=== PATIENT | male | born 1965 | race American Indian/Alaskan Native ===

== ENCOUNTER 2017-07-24 07:21 | Day surgery (SDC) | payer OTHER ==
[~2017-07-24 07:21] MED LIST: Lactated Ringers 1,000 ML IV SCH; Lidocaine 1% 4 ML ONE; Lidocaine 1%/Sod Bicarbonate in NS 8.4% 1 ML Syringe IV PRN; Propofol 200 MG/20 ML SDV ONE; Sodium Chloride 0.9% 10 ML Syringe FLUSH PRN; fentaNYL 100 MCG/2 ML SDV ONE
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
[2017-07-24] MEDS ORDERED: Ketamine 500 mg/10 ML MDV ONE (09:04)
[2017-07-24] MEDS ORDERED: Propofol 200 MG/20 ML SDV ONE (09:21)
--- NOTE | 2017-07-24 09:31 | PCM.OPNOTE ---
- General Post-Op/Procedure Note Date of Surgery/Procedure: 07/24/17 Operative Procedure(s): colonosocopy to cecum with removal of diminutive polyp by cold bx forceps at 20 cm Pre Op Diagnosis: screening colonosocopy Post-Op Diagnosis: Same Anesthesia Technique: MAC Primary Surgeon: Nikos Costa Complications: None Condition: Good
--- NOTE | 2017-07-24 09:34 | PCM48HPAN ---
Post Anesthesia Note - EVALUATION WITHIN 48HRS OF ANESTHETIC Vital Signs in Normal Range: Yes Patient Participated in Evaluation: Yes Respiratory Function Stable: Yes Airway Patent: Yes Cardiovascular Function Stable: Yes Hydration Status Stable: Yes Pain Control Satisfactory: Yes Nausea and Vomiting Control Satisfactory: Yes Mental Status Recovered: Yes
[2017-07-24 09:37] VITALS: BP 134/88
--- NOTE | 2017-07-24 13:05 | OR ---
DATE OF OPERATION: 07/24/2017 SURGEON: Nikos Costa MD PREOPERATIVE DIAGNOSIS: Screening colonoscopy. POSTOPERATIVE DIAGNOSIS: Screening colonoscopy. OPERATION PERFORMED: Colonoscopy to cecum with removal of a diminutive polyp at 20 cm by cold biopsy forceps, completely removed. FINDINGS: I did not see any angiodysplasias, large tumor masses, ulcerations, diverticulum, or notable hemorrhoids. ANESTHESIA: Done under IV sedation. DESCRIPTION OF PROCEDURE: The patient was taken to the endoscopy room, placed in a supine position, connected to monitoring equipment, given IV sedation, and placed in a left lateral position. Perianal area was inspected and was normal. Rectal exam showed good sphincter tone. A video Olympus colonoscope was then introduced into the rectum and threaded up without problem to the cecum, where the appendicular orifice and ileocecal valve were noted. Prep was adequate. [place] cleansing score grade B. The scope was slowly withdrawn showing the cecum, ascending colon, transverse colon, descending colon, sigmoid colon, and rectum. A small, only 1, diverticulum was noted at the descending colon and a diminutive lesion, possibly a polyp, was noted at 20 cm, and this was removed by cold biopsy forceps. This was sent to pathology. The patient tolerated the procedure and was sent to recovery room in a stable condition. Specimen sent to pathology in a labeled container. The patient will be followed up in the clinic. ESTIMATED BLOOD LOSS: MMODAL /[id number]
== END 2017-07-24 10:02 | disposition home or self-care (01) ==
LOC: JD.SDS 07:21
PROVIDERS: ATTEND Surgery
DX: Z12.11 Encounter for screening for malignant neoplasm of colon (principal); D12.6 Benign neoplasm of colon, unspecified; K57.30 Diverticulosis of large intestine without perforation or abscess without bleeding; I10 Essential (primary) hypertension; E66.9 Obesity, unspecified; Z79.82 Long term (current) use of aspirin; Z79.899 Other long term (current) drug therapy; Z87.891 Personal history of nicotine dependence; Z68.41 Body mass index [BMI] 40.0-44.9, adult
CPT/HCPCS: 45380; J3010; J7120; 00810; J2704

== ENCOUNTER 2017-08-03 07:10 | Day surgery (SDC) | payer OTHER ==
[~2017-08-03 07:10] MED LIST changes: +Ketamine 500 mg/10 ML MDV ONE; +Lactated Ringers 1,000 ML ONE; -Lidocaine 1%/Sod Bicarbonate in NS 8.4% 1 ML Syringe IV PRN; +Lidocaine 1%/Sod Bicarbonate in NS 8.4% 1 ML Syringe PRN; +Metoclopramide 10 MG/2 ML SDV ONE; +Midazolam 1 MG/ML 2 ML SDV ONE; +Ondansetron 4 MG/2 ML SDV ONE; +fentaNYL 250 MCG/5 ML SDV ONE
[2017-08-03] MEDS ORDERED: Ketamine 500 mg/10 ML MDV ONE (07:31)
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
[2017-08-03] MEDS ORDERED: Lidocaine 1% with EPINEPHrine 1:100,000 20 ML MDV ONE ×2 (08:30→09:16)
[2017-08-03] MEDS ORDERED: Bacitracin Oint 15 GM Tube ONE (09:20)
[2017-08-03] MEDS ORDERED: Propofol 200 MG/20 ML SDV ONE ×4 (09:20→10:17)
[2017-08-03] MEDS ORDERED: Ondansetron 4 MG/2 ML SDV ONE (09:36)
[2017-08-03] MEDS ORDERED: fentaNYL 100 MCG/2 ML SDV ONE (09:38)
[2017-08-03] MEDS ORDERED: Lidocaine 1% 2 ML ONE (10:34)
[2017-08-03] MEDS ORDERED: Lactated Ringers 1,000 ML ONE ×2 (10:34)
--- NOTE | 2017-08-03 10:38 | PCM.OPNOTE ---
- General Post-Op/Procedure Note Date of Surgery/Procedure: 08/03/17 Operative Procedure(s): excision multipe skin neuromas with layered closures see op note Pre Op Diagnosis: neuromas multiple Post-Op Diagnosis: Same Anesthesia Technique: MAC Primary Surgeon: Nikos Costa EBL in mLs: 25 Complications: None Condition: Good
[2017-08-03] MEDS ORDERED: Acetaminophen/HYDROcodone 325-5 MG Tab PO ONE (11:15)
[2017-08-03 11:27] VITALS: BP 131/89
--- NOTE | 2017-08-03 14:02 | OR ---
DATE OF OPERATION: 08/03/2017 SURGEON: Nikos Costa MD PREOPERATIVE DIAGNOSIS: Multiple neuromas. POSTOPERATIVE DIAGNOSIS: Multiple neuromas. OPERATION PERFORMED: Excision with layered closure. ANESTHESIA: Done under IV sedation and local anesthetic, 1% Xylocaine with epinephrine. INDICATION: This patient has a history of pain from these neuromas and history of growth. Sites of the excision; 1. Right scalp medial margin of lesion 2 cm, excised and brought together with a layered closure. 2. Right scalp lateral 2 cm margin of lesion, brought together in layered closure. 3. Right arm posterior margin of lesion 4 cm, excised and closed in layers. 4. Right arm anterior 4 cm margin of lesion, excised and brought together in layered closure. 5. Right arm distal margin of lesion, 4 cm, excised and brought together in layered closure. 6. Lesion of right forearm proximal 4 cm margin of lesion, brought together with layered closure. 7. Left lateral chest wall a series of 3 neuromas margin of lesion measuring 4 cm, brought together in a layered closure. 8. Lower abdomen margin of lesion 8 cm, brought together in layered closure. 9. Right lateral thigh margin of lesion 8 cm, brought together in layered closure. DESCRIPTION OF PROCEDURE: The patient was taken to the operating room and placed in a supine position. Prior to anesthetic being given, the areas were marked with a marking pen. Each one of these areas were then prepped with Betadine and draped off in a sterile fashion. Each one of the lesions were elliptically incised. The deep tissues were brought together with interrupted 3-0 Vicryl suture, and the skin with interrupted 4-0 Prolene suture. This was done in the sites stated above. The patient tolerated the procedure and was sent to recovery room in a stable condition. ESTIMATED BLOOD LOSS: 25 mL. MMODAL /[id number]
== END 2017-08-03 11:40 | disposition home or self-care (01) ==
LOC: JD.SDS 07:10
PROVIDERS: ATTEND Surgery
DX: D36.10 Benign neoplasm of peripheral nerves and autonomic nervous system, unspecified (principal); I10 Essential (primary) hypertension; E66.9 Obesity, unspecified; Z68.41 Body mass index [BMI] 40.0-44.9, adult; G89.29 Other chronic pain; M54.5 Low back pain; Z98.890 Other specified postprocedural states; Z79.899 Other long term (current) drug therapy; Z79.82 Long term (current) use of aspirin; Z87.891 Personal history of nicotine dependence
CPT/HCPCS: 64792; A9270; J2250; J2405; J3010; J7120; 00300; J2704; J2765

== ENCOUNTER 2021-02-04 11:07 | Emergency (ER) | payer OTHER ==
[2021-02-04 11:17] VITALS: BP 145/90; PULSE 93
[2021-02-04] MEDS ORDERED: Acetaminophen 325 MG Tab PO ONE (11:25)
--- NOTE | 2021-02-04 11:50 | CT ---
Head CT Technique: Multiple axial sections through the brain were obtained. Intravenous contrast was not utilized. Reconstructed coronal and sagittal images were obtained. Comparison: Prior head CT study of 07/30/12. Findings: Ventricles along with basal cisterns and sulci over the convexities are within normal limits for the patient's age. No abnormal parenchymal densities are seen. No evidence of intracranial hemorrhage. No midline shift or mass-effect is seen. Bone window settings were reviewed. Slight mucosal thickening is noted within the inferior left mastoid sinus. Other visualized mastoid and paranasal sinuses show nothing acute. No acute calvarial abnormality is appreciated. Impression: 1. Mucosal thickening within the anterior left mastoid sinus which appears chronic. 2. No acute intracranial abnormality is appreciated. Diagnostic code #2
[2021-02-04] MEDS ORDERED: Ketorolac 60 MG/2 ML SDV IM ONE (11:51)
[2021-02-04] MEDS ORDERED: HYDROmorphone 1 MG/ML Syringe IM ONE (11:51)
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
== END 2021-02-04 12:15 | disposition home or self-care (01) ==
LOC: JD.ED 11:07
DX: S06.0X0A Concussion without loss of consciousness, initial encounter (principal); E78.00 Pure hypercholesterolemia, unspecified; I10 Essential (primary) hypertension; E66.9 Obesity, unspecified; Z68.30 Body mass index [BMI] 30.0-30.9, adult; Z79.82 Long term (current) use of aspirin; Z79.899 Other long term (current) drug therapy; W22.8XXA Striking against or struck by other objects, initial encounter
CPT/HCPCS: 70450; 96372; 99284; A9270; J1170; J1885; 99283

== ENCOUNTER 2021-09-06 07:12 | Emergency (ER) | payer OTHER ==
[2021-09-06] MEDS ORDERED: Aspirin 81 MG Tab.Chew PO ONE (08:03)
[2021-09-06] MEDS ORDERED: Morphine 4 MG/ML Syringe IVPUSH ONE ×3 (08:04→19:53)
[2021-09-06] MEDS ORDERED: Aspirin 81 MG Tab.Chew ONE (08:17)
[2021-09-06] MEDS: Nitroglycerin 0.3 MG Tab.SL SL PRN ×6 (08:24→12:24)
[2021-09-06] MEDS ORDERED: Heparin Sodium 5,000 Units/ML Vial IVPUSH ONE (12:09)
[2021-09-06] MEDS: Heparin Sodium/D5W 25,000 UNITS/500 ML BAG IV SCH (12:28)
[2021-09-06] MEDS ORDERED: Cyclobenzaprine 10 MG Tab PO PRN (21:01)
[2021-09-06] MEDS ORDERED: Aspirin 81 MG Tab.EC PO SCH (21:15)
[2021-09-06] MEDS ORDERED: atorvaSTATin 40 MG Tab PO SCH ×2 (21:15→21:30)
[2021-09-06] MEDS ORDERED: CELECOXIB 200 MG PO SCH (21:15)
[2021-09-06] MEDS ORDERED: Non-Formulary Medication 1 Each (Metformin Hcl [Metformin Hcl] 1,000 MG Tablet) PO SCH (21:15)
[2021-09-06] MEDS ORDERED: Lisinopril 20 MG Tab PO SCH ×2 (21:15→21:30)
[2021-09-06] MEDS ORDERED: Zolpidem 10 MG Tab PO SCH (21:28)
[2021-09-06] MEDS ORDERED: Celecoxib 100 MG Cap PO SCH ×2 (21:30)
[2021-09-06] MEDS ORDERED: metFORMIN 500 MG Tab PO SCH ×2 (21:30)
[2021-09-07] MEDS: Morphine 4 MG/ML Syringe IVPUSH PRN ×2 (01:46→05:12)
[2021-09-07] MEDS ORDERED: Heparin Sodium 5,000 Units/ML Vial IVPUSH ONE (02:19)
[2021-09-07] MEDS: Heparin Sodium/D5W 25,000 UNITS/500 ML BAG IV SCH (07:20)
[2021-09-07] MEDS ORDERED: Clopidogrel 75 MG Tab PO ONE (08:18)
[2021-09-07] MEDS: Nitroglycerin 0.3 MG Tab.SL SL PRN ×3 (08:36→08:51)
[2021-09-07] MEDS ORDERED: Acetaminophen 325 MG Tab PO PRN (12:34)
[2021-09-07] MEDS ORDERED: Morphine 2 MG/ML SYRINGE IVPUSH PRN (12:34)
[2021-09-07] MEDS ORDERED: oxyCODONE 5 MG Tab PO PRN (12:34)
[2021-09-07] MEDS ORDERED: Ondansetron 4 MG/2 ML SDV IV PRN (12:34)
[2021-09-07 13:47] VITALS: BP 128/74; PULSE 88
[2021-09-07] MEDS ORDERED: Zolpidem 10 MG Tab PO SCH (21:00)
[2021-09-07] MEDS ORDERED: Aspirin 81 MG Tab.EC PO SCH (21:00)
== END 2021-09-07 13:39 ==
LOC: JD.ED 07:12 → JD.MS 09-07 12:34 → UNDOADMOB 09-07 12:34 → JD.ED 09-07 13:39
DX: I24.9 Acute ischemic heart disease, unspecified (principal); E78.00 Pure hypercholesterolemia, unspecified; I10 Essential (primary) hypertension; E11.9 Type 2 diabetes mellitus without complications; I25.10 Atherosclerotic heart disease of native coronary artery without angina pectoris; M19.90 Unspecified osteoarthritis, unspecified site; E66.9 Obesity, unspecified; Z68.35 Body mass index [BMI] 35.0-35.9, adult; Z79.82 Long term (current) use of aspirin; Z79.84 Long term (current) use of oral hypoglycemic drugs; Z79.899 Other long term (current) drug therapy; Z20.822 Contact with and (suspected) exposure to COVID-19
CPT/HCPCS: 36415; 71045; 80053; 80061; 82947; 84484; 85025; 85379; 85610; 85730; 87635; 93005; 96374; 96375; 96376; 99285; A9270; J1644; J2270; 93010; U0002

== ENCOUNTER 2025-05-18 15:12 | Inpatient (IN) | payer OTHER ==
[2025-05-18] MEDS ORDERED: Sodium Chloride 0.9% 10 ML Syringe FLUSH PRN (15:37)
[2025-05-18 15:59] LABS: BASOPHILS ABSOLUTE AUTO 0.0 K/mm3 (0.0-0.2); BASOPHILS PERCENT AUTO 0.4 % (0.0-1.0); EOSINOPHILS ABSOLUTE AUTO 0.1 K/mm3 (0.0-0.4); EOSINOPHILS PERCENT AUTO 0.8 % (0.0-6.0); IMMATURE GRAN ABSOLUTE AUTO 0.06 K/mm3 (0.00-0.05); IMMATURE GRAN PERCENT AUTO 0.8 % (0.0-0.4); LYMPHOCYTES ABSOLUTE AUTO 0.8 K/mm3 (1.0-4.8); LYMPHOCYTES PERCENT AUTO 10.5 % (24.0-44.0); MEAN PLATELET VOLUME 10.6 fl (9.4-12.4); MONOCYTES ABSOLUTE AUTO 1.2 K/mm3 (0.0-0.8); MONOCYTES PERCENT AUTO 15.5 % (0.0-8.0); NEUTROPHILS ABSOLUTE AUTO 5.5 K/mm3 (1.8-7.7); NEUTROPHILS PERCENT AUTO 72.0 % (41.0-71.0); NRBC ABSOLUTE 0.00 (0.00-0.02); NRBC PERCENT 0.0 % (0.0-0.2); PLATELET COUNT,PLT 142 K/mm3 (150-400); RED BLOOD CELL COUNT 4.91 M/mm3 (4.52-5.90); WHITE BLOOD CELL COUNT,WBC 7.59 K/mm3 (3.9-11.3)
[2025-05-18 16:01] LABS: APPEARANCE,URINE CLOUDY (Clear); GLUCOSE,URINE NEGATIVE (Negative); OCCULT BLOOD,URINE 3+ (Negative)
[2025-05-18] MEDS ORDERED: Naloxone 0.4 MG/ML SDV IVPUSH PRN (16:09)
[2025-05-18 16:17] LABS: A/G RATIO 0.7 (1-2); ALANINE AMINOTRANSFERASE,ALT 84.0 U/L (16-63); ASPARTATE AMNIOTRANSFERASE,AST 58.0 U/L (15-37); BILIRUBIN TOTAL 0.7 mg/dL (0.2-1.0); BLOOD UREA NITROGEN,BUN 30.0 mg/dL (7-18); CARBON DIOXIDE,CO2 27.0 mEq/L (21-32); CHLORIDE,CL 98.0 mEq/L (98-107); CREATININE 1.0 mg/dL (0.7-1.3); EST CRCL DRUG DOSING (CG) 80.52 mL/min; ESTIMATED GFR 87.0 mL/min (>60); GLUCOSE RANDOM 124.0 mg/dL (70-99); POTASSIUM,K 3.6 mEq/L (3.5-5.1); PROTEIN TOTAL,TP 7.1 g/dl (6.4-8.2); SODIUM,NA 132.0 mEq/L (136-145)
[2025-05-18 16:20] LABS: LACTIC ACID 1.3 mmol/L (0.4-2.0)
[2025-05-18 16:32] LABS: EPITHELIAL CELLS,URINE 0-5 /hpf (0-5)
[2025-05-18] MEDS ORDERED: Ondansetron 4 MG Tab.DIS PO PRN (19:09)
[2025-05-18] MEDS ORDERED: Ondansetron 4 MG/2 ML SDV IV PRN (19:09)
[2025-05-18] MEDS ORDERED: Sennosides/Docusate Sodium 50-8.6 MG Tab PO PRN (19:09)
[2025-05-18] MEDS ORDERED: 50% Dextrose in Water 50 ML Syringe IVPUSH PRN (19:14)
[2025-05-19] MEDS: Insulin Lispro 100 Unit/ML 3 ML KwikPen SUBCUT SCH (00:09)
[2025-05-19 05:54] LABS: BASOPHILS ABSOLUTE AUTO 0.0 K/mm3 (0.0-0.2); BASOPHILS PERCENT AUTO 0.6 % (0.0-1.0); EOSINOPHILS ABSOLUTE AUTO 0.1 K/mm3 (0.0-0.4); EOSINOPHILS PERCENT AUTO 2.3 % (0.0-6.0); IMMATURE GRAN ABSOLUTE AUTO 0.04 K/mm3 (0.00-0.05); IMMATURE GRAN PERCENT AUTO 0.6 % (0.0-0.4); LYMPHOCYTES ABSOLUTE AUTO 0.7 K/mm3 (1.0-4.8); LYMPHOCYTES PERCENT AUTO 12.0 % (24.0-44.0); MEAN PLATELET VOLUME 10.5 fl (9.4-12.4); MONOCYTES ABSOLUTE AUTO 1.0 K/mm3 (0.0-0.8); MONOCYTES PERCENT AUTO 16.3 % (0.0-8.0); NEUTROPHILS ABSOLUTE AUTO 4.2 K/mm3 (1.8-7.7); NEUTROPHILS PERCENT AUTO 68.2 % (41.0-71.0); NRBC ABSOLUTE 0.00 (0.00-0.02); NRBC PERCENT 0.0 % (0.0-0.2); PLATELET COUNT,PLT 148 K/mm3 (150-400); RED BLOOD CELL COUNT 4.34 M/mm3 (4.52-5.90); WHITE BLOOD CELL COUNT,WBC 6.19 K/mm3 (3.9-11.3)
[2025-05-19 06:37] LABS: A/G RATIO 0.8 (1-2); ALANINE AMINOTRANSFERASE,ALT 76.0 U/L (16-63); ASPARTATE AMNIOTRANSFERASE,AST 46.0 U/L (15-37); BILIRUBIN TOTAL 0.6 mg/dL (0.2-1.0); BLOOD UREA NITROGEN,BUN 21.0 mg/dL (7-18); CARBON DIOXIDE,CO2 26.0 mEq/L (21-32); CHLORIDE,CL 100.0 mEq/L (98-107); CREATININE 0.9 mg/dL (0.7-1.3); EST CRCL DRUG DOSING (CG) 86.56 mL/min; ESTIMATED GFR 99.0 mL/min (>60); GLUCOSE RANDOM 114.0 mg/dL (70-99); PHOSPHORUS 2.1 mg/dL (2.6-4.7); POTASSIUM,K 3.6 mEq/L (3.5-5.1); PROTEIN TOTAL,TP 6.3 g/dl (6.4-8.2); SODIUM,NA 134.0 mEq/L (136-145)
[2025-05-19] MEDS: Magnesium Sulfate 2 GM/50 mL 2 GM in Premix Bag 1 BAG IV ONE (10:18)
[2025-05-19] MEDS: Acetaminophen/HYDROcodone 325-5 MG Tab PO PRN (10:19)
[2025-05-19] MEDS: Potassium Phosphates 30 MMOLE in Sodium Chloride 0.9% 500 ML IV ONE (12:14)
[2025-05-19] MEDS: Phenazopyridine 95 MG Tab PO PRN (23:48)
[2025-05-20 04:44] LABS: BASOPHILS ABSOLUTE AUTO 0.0 K/mm3 (0.0-0.2); BASOPHILS PERCENT AUTO 0.8 % (0.0-1.0); EOSINOPHILS ABSOLUTE AUTO 0.2 K/mm3 (0.0-0.4); EOSINOPHILS PERCENT AUTO 2.8 % (0.0-6.0); IMMATURE GRAN ABSOLUTE AUTO 0.04 K/mm3 (0.00-0.05); IMMATURE GRAN PERCENT AUTO 0.8 % (0.0-0.4); LYMPHOCYTES ABSOLUTE AUTO 1.1 K/mm3 (1.0-4.8); LYMPHOCYTES PERCENT AUTO 21.1 % (24.0-44.0); MEAN PLATELET VOLUME 10.4 fl (9.4-12.4); MONOCYTES ABSOLUTE AUTO 0.7 K/mm3 (0.0-0.8); MONOCYTES PERCENT AUTO 13.6 % (0.0-8.0); NEUTROPHILS ABSOLUTE AUTO 3.2 K/mm3 (1.8-7.7); NEUTROPHILS PERCENT AUTO 60.9 % (41.0-71.0); NRBC ABSOLUTE 0.00 (0.00-0.02); NRBC PERCENT 0.0 % (0.0-0.2); PLATELET COUNT,PLT 163 K/mm3 (150-400); RED BLOOD CELL COUNT 4.25 M/mm3 (4.52-5.90); WHITE BLOOD CELL COUNT,WBC 5.31 K/mm3 (3.9-11.3)
[2025-05-20 05:07] LABS: A/G RATIO 0.7 (1-2); ALANINE AMINOTRANSFERASE,ALT 99.0 U/L (16-63); ASPARTATE AMNIOTRANSFERASE,AST 53.0 U/L (15-37); BILIRUBIN TOTAL 0.4 mg/dL (0.2-1.0); BLOOD UREA NITROGEN,BUN 12.0 mg/dL (7-18); CARBON DIOXIDE,CO2 27.0 mEq/L (21-32); CHLORIDE,CL 101.0 mEq/L (98-107); CREATININE 0.7 mg/dL (0.7-1.3); EST CRCL DRUG DOSING (CG) 111.29 mL/min; ESTIMATED GFR 107.0 mL/min (>60); GLUCOSE RANDOM 108.0 mg/dL (70-99); POTASSIUM,K 4.0 mEq/L (3.5-5.1); PROTEIN TOTAL,TP 6.2 g/dl (6.4-8.2); SODIUM,NA 134.0 mEq/L (136-145)
[2025-05-20] MEDS: Oxybutynin 5 MG Tab.ER PO SCH (08:27)
[2025-05-20] MEDS: Magnesium Sulf/Wat 4 GM/50 mL 4 GM in Premix Bag 1 BAG IV ONE (08:27)
[2025-05-20 12:30] VITALS: BP 111/65; PULSE 84
== END 2025-05-20 12:43 | disposition home or self-care (01) | DRG 728 ==
LOC: JD.ED 15:12 → JD.MS 19:09
PROVIDERS: ADMIT Student in an Organized Health Care Education/Training Program; ATTEND Family Medicine
DX: N41.0 Acute prostatitis (principal); R31.9 Hematuria, unspecified; E78.00 Pure hypercholesterolemia, unspecified; I10 Essential (primary) hypertension; G47.30 Sleep apnea, unspecified; E78.5 Hyperlipidemia, unspecified; M54.9 Dorsalgia, unspecified; G89.29 Other chronic pain; N41.9 Inflammatory disease of prostate, unspecified; Q85.09 Other neurofibromatosis; E11.9 Type 2 diabetes mellitus without complications; E66.9 Obesity, unspecified; Z68.24 Body mass index [BMI] 24.0-24.9, adult; Z98.890 Other specified postprocedural states; Z79.899 Other long term (current) drug therapy; Z79.82 Long term (current) use of aspirin; Z87.891 Personal history of nicotine dependence; Z79.84 Long term (current) use of oral hypoglycemic drugs; Z90.49 Acquired absence of other specified parts of digestive tract
CPT/HCPCS: 36415; 80053; 81001; 82947; 83605; 83735; 84100; 85025; 86140; 87040; 87086; 87088; 87186; 93005; 93010; 94760; 96365; 96375; 99222; 99239; 99284-25; 99285; A9270-GY; J1171; J1308; J2270; J2543; J3475; J3490; J7040